=== PATIENT | female | born 1965 | race Caucasian/White ===

== ENCOUNTER 2016-07-27 12:52 | Emergency (ER) | payer OTHER ==
[~2016-07-27] VITALS: Ht 160 cm; Wt 72.6 kg
[2016-07-27 13:17] VITALS: BP 169/104
--- NOTE | 2016-07-27 13:35 | NUR ---
Patient ambulated to bed 1. RN evaluating patient at bedside.
[2016-07-27] MEDS ORDERED: HYDROcodone/APAP 5/325 MG 1 TAB TAB PO ONE (13:40)
[2016-07-27] MEDS ORDERED: ONDANSETRON 4 MG ODT PO ONE (13:40)
--- NOTE | 2016-07-27 14:22 | NUR ---
PATIENT PRESENTS TO ED WITH C/O EPIGASTRIC PAIN . PT STATES SHE STARTED HAVING NV LAST NIGHT . SKIN IS PINK/WARM/DRY; AAOX4 WITH EVEN AND STEADY GAIT; LUNGS CLEAR BL; HR EVEN AND REGULAR; PT DENIES ANY FEVER, CP, SOB, OR COUGH AT THIS TIME; PATIENT STATES PAIN OF 3/10 AT THIS TIME; VSS; PATIENT POSITIONED FOR COMFORT; HOB ELEVATED; BEDRAILS UP X2; BED DOWN. ER MD MADE AWARE OF PT STATUS.
[2016-07-27 14:26] VITALS: BP 169/104
--- NOTE | 2016-07-27 14:26 | NUR ---
Patient discharged with v/s stable. Written and verbal after care instructions given and explained. Patient alert, oriented and verbalized understanding of instructions. Ambulatory with steady gait. All questions addressed prior to discharge. ID band removed. Patient advised to follow up with PMD. Rx of ONDANSTERON AND NORCO given. Patient educated on indication of medication including possible reaction and side effects. Opportunity to ask questions provided and answered.
[2016-09-13] MEDS ORDERED: SYNTHROID0.075 MG PO (10:29)
[2016-09-13] MEDS ORDERED: NORCO 325 MG-7.1 TAB PO (15:40)
[2016-09-13] MEDS ORDERED: NORCO 5/325 MG1 TAB PO (15:42)
== END 2016-07-27 14:26 | disposition home or self-care (01) ==
LOC: MED 12:52
DX: K80.50 Calculus of bile duct without cholangitis or cholecystitis without obstruction (principal)
CPT/HCPCS: 99283; S0119

== ENCOUNTER 2016-09-13 09:35 | Day surgery (SDC) | payer OTHER ==
[~2016-09-13] VITALS: Ht 160 cm; Wt 68.0 kg
[2016-09-13] MEDS ORDERED: LIDOCAINE 1% 50 ML ONE (09:59)
[2016-09-13] MEDS ORDERED: BUPIVACAINE-MPF/EPI 0.25% 30 ML VIAL INJ ONE (10:00)
[2016-09-13] MEDS ORDERED: SYN.075 PO (10:29)
[2016-09-13] MEDS ORDERED: SEVOFLURANE 250 ML BTL INH ONE (12:12)
[2016-09-13] MEDS ORDERED: LIDOCAINE 2% 100 MG/5 ML SYR IVP ONE (12:12)
[2016-09-13] MEDS ORDERED: PROPOFOL 200 MG/20 ML VIAL IV ONE (12:12)
[2016-09-13] MEDS ORDERED: MIDAZOLAM 2 MG/2 ML VIAL ONE (12:19)
[2016-09-13] MEDS ORDERED: fentaNYL 0.05 MG/ML VIAL ONE (12:19)
[2016-09-13] MEDS ORDERED: ONDANSETRON 4 MG/2 ML VIAL IVP PRN (13:00)
[2016-09-13] MEDS ORDERED: HYDROmorphone 1 MG/ML AMP IVP PRN ×2 (13:00→14:05)
[2016-09-13] MEDS ORDERED: MORPHINE SULFATE 2 MG/ML SYR IVP PRN (14:05)
[2016-09-13] MEDS ORDERED: MORPHINE SULFATE 4 MG/ML SYR IV PRN (14:05)
[2016-09-13] MEDS ORDERED: HYDROcodone/APAP 5/325 MG 1 TAB TAB PO PRN (14:05)
[2016-09-13] MEDS ORDERED: ONDANSETRON 4 MG/2 ML VIAL IV PRN (14:05)
[2016-09-13 15:00] VITALS: BP 144/92
[2016-09-13 15:30] VITALS: BP 145/84
[2016-09-13] MEDS ORDERED: ACET-2863 PO (15:40)
[2016-09-13] MEDS ORDERED: HYDR-4446 PO (15:42)
[2016-09-13 16:00] VITALS: BP 145/86
== END 2016-09-13 18:30 | disposition home or self-care (01) ==
LOC: MDS 09:35 → MMU 09:36 → EDUNIT# 11:30 → MTU 14:50 → MDS 18:30
PROVIDERS: ATTEND Surgery
DX: D17.24 Benign lipomatous neoplasm of skin and subcutaneous tissue of left leg (principal); D17.39 Benign lipomatous neoplasm of skin and subcutaneous tissue of other sites; Z90.710 Acquired absence of both cervix and uterus; E89.0 Postprocedural hypothyroidism
CPT/HCPCS: 21552; 27337; 71010; 87081; 93005; J0690; J2001; J2250; J2704; J3010; J3490; J7060; J7120

== ENCOUNTER 2022-06-24 11:55 | Emergency (ER) | payer OTHER ==
[~2022-06-24] VITALS: Ht 160 cm; Wt 72.3 kg
[~2022-06-24 11:55] MED LIST: ACET-8905 PO; SYN.075 PO
[2022-06-24 12:13] VITALS: BP 125/92
--- NOTE | 2022-06-24 12:36 | NUR ---
C/O 01/13 RUQ ABDOMINAL PAIN, N/V/D X LAST NIGHT. PMH: GALL STONE,DM, HLD, THYROID
[2022-06-24 13:45] LABS: APPEARANCE,URINE CLEAR (CLEAR); BILIRUBIN,URINE NEGATIVE (NEGATIVE); BLOOD, URINE 3+ (NEGATIVE); COLOR,URINE YELLOW (YELLOW); LEUKOCYTE ESTERASE ,URINE TRACE (NEGATIVE); NITRITE, URINE POSITIVE (NEGATIVE); PH,URINE 6.5 (5.0-9.0); UGLUCOSE NEGATIVE (NEGATIVE)
[2022-06-24 14:10] LABS: WBC,URINE 0-5 /HPF (0-5)
[2022-06-24 15:51] LABS: BASOPHILS % (AUTO) 0.3 % (0.0-2.0); HEMATOCRIT 40.7 % (36-48); HEMOGLOBIN 14.1 g/dL (12.0-16.0); LYMPHOCYTES # (AUTO) 0.5 K/uL (2.5-16.5); MEAN CORPUSCULAR HEMOGLOBIN 31 pg (27-31); MEAN CORPUSCULAR HGB CONC 35 g/dL (33-37); MONOCYTES # (AUTO) 0.4 K/uL (0.8-1.0); MONOCYTES % (AUTO) 3.3 % (1.7-9.3); NEUTROPHILS # (AUTO) 10.7 K/uL (1.8-7.7); NEUTROPHILS % (AUTO) 92.4 % (42.2-75.2); PLATELET COUNT (AUTO) 250 K/uL (140-450); RED BLOOD CELL COUNT(AUTO) 4.48 MIL/uL (4.20-5.40); WHITE BLOOD COUNT (AUTO) 11.6 K/uL (4.8-10.8)
[2022-06-24] MEDS ORDERED: ONDANSETRON 4 MG ODT PO ONE (16:05)
[2022-06-24] MEDS ORDERED: KETOROLAC 30 MG/ML VIAL IM ONE (16:05)
[2022-06-24] MEDS ORDERED: ALUMINUM HYD/MAG/SIMETHICONE 30 ML UDC PO ONE (16:05)
[2022-06-24 16:14] LABS: ALBUMIN 4.9 g/dL (3.4-5.0); ANION GAP 17.2 (8-16); CARBON DIOXIDE 26.1 mmol/L (21-32); CREATININE 0.9 mg/dL (0.6-1.3); POTASSIUM 3.3 mmol/L (3.5-5.1); TOTAL BILIRUBIN 1.2 mg/dL (0.0-1.0)
[2022-06-24] MEDS ORDERED: ONDA-188 PO (18:32)
[2022-06-24] MEDS ORDERED: IBUP-2213 PO (18:32)
[2022-06-24] MEDS ORDERED: CEPH-588 PO (18:32)
[2022-06-24 19:11] VITALS: BP 118/89
--- NOTE | 2022-06-24 19:11 | NUR ---
Patient discharged with v/s stable. Written and verbal after care instructions given and explained. Patient alert, oriented and verbalized understanding of instructions. Ambulatory with steady gait. All questions addressed prior to discharge. ID band removed. Patient advised to follow up with PMD. Rx of KEFLEX, IBUPROFEN, ZOFRAN given. Patient educated on indication of medication including possible reaction and side effects. Opportunity to ask questions provided and answered.
== END 2022-06-24 19:11 | disposition home or self-care (01) ==
LOC: MED 11:55
DX: N39.0 Urinary tract infection, site not specified (principal); K80.20 Calculus of gallbladder without cholecystitis without obstruction; E11.9 Type 2 diabetes mellitus without complications; I10 Essential (primary) hypertension; Z86.39 Personal history of other endocrine, nutritional and metabolic disease; Z79.899 Other long term (current) drug therapy; Z79.2 Long term (current) use of antibiotics; Z79.1 Long term (current) use of non-steroidal anti-inflammatories (NSAID); Z79.891 Long term (current) use of opiate analgesic
CPT/HCPCS: 36415; 76705; 80053; 81001; 83690; 85025; 87086; 96372; 99285; J1885; Q0162